=== PATIENT | male | born 1985 | race Caucasian/White ===

== ENCOUNTER 2017-06-21 02:55 | Inpatient (IN) | payer MEDICAID ==
[2017-06-21] VITALS (8 sets, daily range): BP systolic 103–124; BP diastolic 60–87; PULSE 58–78; RESP 14–19; TEMP 97.7–98.2; O2SAT 96–99
[~2017-06-21] VITALS: Ht 165.1 cm; Wt 80.0 kg
[~2017-06-21 02:55] MED LIST: ATEN25TA PO; FLUT1SPR5 EACH NARE; MODA100T9 PO; PAXI10TA8 PO
[2017-06-21] MEDS ORDERED: BISACODYL 10 MG SUPP RECTAL PRN (04:30)
[2017-06-21] MEDS ORDERED: SODIUM CHLORIDE 0.9% FLUSH 10 ML FLUSH IV FLUSH PRN (04:30)
[2017-06-21] MEDS ORDERED: MAGNESIUM HYDROXIDE SUSP 30 ML CUP PO PRN (04:30)
[2017-06-21] MEDS ORDERED: ONDANSETRON HCL 4 MG/2 ML VIAL IVP PRN (04:30)
[2017-06-21] MEDS ORDERED: SENNOSIDES 8.6 MG TAB PO PRN (04:30)
[2017-06-21] MEDS ORDERED: NALOXONE HCL 0.4 MG/ML AMP IV PUSH PRN (04:30)
[2017-06-21] MEDS ORDERED: ACETAMINOPHEN 325 MG TAB PO PRN (04:30)
[2017-06-21] MEDS ORDERED: LACTULOSE SYRUP 20 GM/30 ML CUP PO PRN (04:30)
--- NOTE | 2017-06-21 04:38 | HHI.HP ---
[facility] Primary Care Physician Unknown Admission Diagnosis Diagnoses: Travel History International Travel<30 Days: No Contact w/Intl Traveler <30 Da: No Traveled to Known Affected Are: No History of Present Illness 32-year-old male with a past medical history significant for tachycardia presents the emergency department for the evaluation of abdominal pain. The patient reports he has had epigastric pain that radiates to his right quadrant, medial chest and back for the past day. The pain is accompanied by severe nausea. He reports he has had this pain intermittently for the past 1-2 years and it is worse with eating fatty foods. He also reports accompanying diarrhea. He endorses subjective chills. Denies fever. No chest pain or shortness of breath. No emesis. No weakness or fatigue. No lateralizing signs /symptoms. Review of Systems Except as stated in HPI: all other systems reviewed are Neg Past Family Social History Past Medical History Tachycardia Anxiety Past Surgical History Appendectomy Reported Medications Reported Meds & Active Scripts Active Flonase Nasal [place] (Fluticasone Nasal [place]) 50 Mcg/Act [place] 100 Mcg EACH NARE BID Reported Modafinil 100 Mg Tab 100 Mg PO BID PRN Paxil (Paroxetine HCl) 10 Mg Tab 10 Mg PO DAILY Atenolol 25 Mg Tab 25 Mg PO DAILY Allergies: Coded Allergies: No Known Allergies (Verified Adverse Reaction, Unknown, 06/21/17) Family History Family history of coronary artery disease. Social History Negative for tobacco. Rare alcohol. Denies illicit drugs. Physical Exam Vital Signs Vital Signs Date Time Temp Pulse Resp B/P (MAP) Pulse Ox O2 Delivery O2 Flow Rate FiO2 06/21/17 03:09 98.2 65 16 124/87 (99) 98 Physical Exam GENERAL: male sitting up in bed SKIN: No rashes, ecchymoses or lesions. Cool and dry. HEAD: Atraumatic. Normocephalic. No temporal or scalp tenderness. EYES: Pupils equal round and reactive. Extraocular motions intact. No scleral icterus. No injection or drainage. ENT: Nose without bleeding, purulent drainage or septal hematoma. Throat without erythema, tonsillar hypertrophy or exudate. Uvula midline. Airway patent. NECK: Trachea midline. No JVD or lymphadenopathy. Supple, nontender, no meningeal signs. CARDIOVASCULAR: Regular rate and rhythm without murmurs, gallops, or rubs. RESPIRATORY: Clear to auscultation. Breath sounds equal bilaterally. No wheezes , rales, or rhonchi. GASTROINTESTINAL: Abdomen soft, tender to palpation in the upper quadrants, nondistended. No hepato-splenomegaly, or palpable masses. Positive Kaufman sign. MUSCULOSKELETAL: Extremities without clubbing, cyanosis, or edema. No joint tenderness, effusion, or edema noted. No calf tenderness. NEUROLOGICAL: Awake and alert. Cranial nerves II through XII intact. Motor and sensory grossly within normal limits. Normal speech. Caprini VTE Risk Assessment Caprini VTE Risk Assessment: No/Low Risk (score <= 1) Caprini Risk Assessment Model Point Value = 1 Point Value = 2 Point Value = 3 Point Value = 5 Age 41-60 Minor surgery BMI > 25 kg/m2 Swollen legs Varicose veins or History of unexplained or recurrent spontaneous Oral contraceptives or hormone replacement Sepsis (< 1 month) Serious lung disease, including pneumonia (< 1 month) Abnormal pulmonary function Acute myocardial infarction Congestive heart failure (< 1 month) History of inflammatory bowel disease Medical patient at bed rest Age 61-74 Arthroscopic surgery Major open surgery (> 45 min) Laparoscopic surgery (> 45 min) Malignancy Confined to bed (> 72 hours) Immobilizing plaster cast Central venous access Age >= 75 History of VTE Family history of VTE Factor V Leiden Prothrombin [id number] Lupus anticoagulant Anticardiolipin antibodies Elevated serum homocysteine Heparin-induced thrombocytopenia Other congenital or acquired thrombophilia Stroke (< 1 month) Elective arthroplasty Hip, pelvis, or leg fracture Acute spinal cord injury (< 1 month) Prophylaxis Regimen Total Risk Factor Score Risk Level Prophylaxis Regimen 0-1 Low Early ambulation 2 Moderate Order ONE of the following: *Sequential Compression Device (SCD) *Heparin 5000 units SQ BID 3-4 Higher Order ONE of the following medications: *Heparin 5000 units SQ TID *Enoxaparin/Lovenox 40 mg SQ daily (WT < 150 kg, CrCl > 30 mL/min) *Enoxaparin/Lovenox 30 mg SQ daily (WT < 150 kg, CrCl > 10-29 mL/min) *Enoxaparin/Lovenox 30 mg SQ BID (WT < 150 kg, CrCl > 30 mL/min) AND/OR *Sequential Compression Device (SCD) 5 or more Highest Order ONE of the following medications: *Heparin 5000 units SQ TID (Preferred with Epidurals) *Enoxaparin/Lovenox 40 mg SQ daily (WT < 150 kg, CrCl > 30 mL/min) *Enoxaparin/Lovenox 30 mg SQ daily (WT < 150 kg, CrCl > 10-29 mL/min) *Enoxaparin/Lovenox 30 mg SQ BID (WT < 150 kg, CrCl > 30 mL/min) AND *Sequential Compression Device (SCD) Assessment and Plan Assessment and Plan Assessment/plan: 1. Acute cholecystitis CT positive for mucosal enhancement and pericholecystic fluid of the gallbladder Gallbladder ultrasound pending General surgery consulted, appreciate assistance Morphine for pain Zosyn N.p.o. 2. Tachycardia Continue home atenolol 3. Anxiety Continue home Paxil FEN NPO Electrolytes: monitor and replete prn NS at 100 cc/hr Physician Certification 2 Midnight Certification Type: Admission for Inpatient Services Order for Inpatient Services The services are ordered in accordance with Medicare regulations or non- Medicare payer requirements, as applicable. In the case of services not specified as inpatient-only, they are appropriately provided as inpatient services in accordance with the 2-midnight benchmark. Estimated LOS (days): 2 2 days is the estimated time the patient will need to remain in the hospital, assuming treatment plan goals are met and no additional complications. Post-Hospital Plan: Not yet determined Nica Rodrigez MD Jun 21, 2017 04:38
[2017-06-21] MEDS: SODIUM CHLOR 0.9% 1000 ML INJ 1,000 ML IV SCH ×3 (05:02→23:32)
[2017-06-21] MEDS: PIPERACIL-TAZO 3.375 GM PREMIX 50 ML IV SCH ×4 (05:02→23:32)
[2017-06-21] MEDS: MORPHINE SULFATE 4 MG/ML INJ IV PUSH PRN ×4 (07:00→21:11)
--- NOTE | 2017-06-21 08:13 | RADRPT ---
EXAM DATE/TIME: 06/21/2017 07:13 [place] COMPARISON: No previous studies available for comparison. INDICATIONS : Right upper quadrant pain. MEDICAL HISTORY : Sinus tachycardia. HTN. Depression. Anxiety. SURGICAL HISTORY : Appendectomy. ENCOUNTER: Initial ACUITY: 1 day PAIN SCORE: 7/10 LOCATION: Right upper quadrant MEASUREMENTS: LIVER: 13.2 cm length COMMON DUCT: 3 mm RIGHT KIDNEY: 9.5 x 4.3 x 3.6 cm FINDINGS: LIVER: Normal echotexture without focal lesion or ductal dilatation. COMMON DUCT: No intraluminal mass or stone visualized. GALLBLADDER: Contains mobile echogenic foci without pericholecystic fluid. Gallbladder wall measures 4 mm. PANCREAS: Not visualized due to overlying bowel gas. RIGHT KIDNEY: No evidence of hydronephrosis, stone, or mass. CONCLUSION: 1. Cholelithiasis with gallbladder wall thickening. No pericholecystic fluid. 2. Nonvisualization of the pancreas. Errol Torrez MD on June 21, 2017 at 8:06 Board Certified Radiologist. This report was verified electronically.
[2017-06-21] MEDS: ATENOLOL 25 MG TAB PO SCH (09:04)
[2017-06-21] MEDS: DOCUSATE SODIUM 50 MG/SENNA 8.6 MG TAB PO SCH ×2 (09:04→21:04)
[2017-06-21] MEDS: PARoxetine HCL 20 MG TAB PO SCH (09:04)
[2017-06-21] MEDS: SODIUM CHLORIDE 0.9% FLUSH 10 ML FLUSH IV FLUSH SCH ×2 (09:04→21:00)
--- NOTE | 2017-06-21 10:59 | PD.CONS ---
cc: Tobias Khan MD HPI Service General Surgery Consult Requested By Dr. Rodrigez Reason for Consult Evaluate for acute cholecystitis Primary Care Physician Unknown History of Present Illness This is a 32 year old male with a past medical history of tachycardia and anxiety who presents to the ED for evaluation of RUQ pain with associated nausea. The patient reports he has had this pain off and on for about 18 months or so. He had a CTA to rule out pain of aortic origin and the scan showed acute cholecystis. The patient also had a gallbladder ultrasound which showed gallstones with gallbladder wall thickening. The patient's liver enzymes are normal. His lipase is normal. A General Surgery consultation has been requested. Review of Systems Constitutional: COMPLAINS OF: Chills, DENIES: Fatigue, Fever, Change in appetite Endocrine: DENIES: Polydipsia, Polyuria, Polyphagia Eyes: DENIES: Diplopia Ears, nose, mouth, throat: DENIES: Tinnitus Respiratory: DENIES: Apneas Cardiovascular: DENIES: Chest pain Gastrointestinal: COMPLAINS OF: Abdominal pain, Nausea, DENIES: Vomiting Genitourinary: DENIES: Urinary incontinence, Urgency Musculoskeletal: DENIES: Joint pain Integumentary: DENIES: Abnormal pigmentation Hematologic/lymphatic: DENIES: Bruising Immunologic/allergic: DENIES: Eczema Neurologic: DENIES: Headache, Localized weakness, Paresthesias Psychiatric: DENIES: Mood changes, Depression, Hallucinations Past Family Social History Past Medical History Tachycardia Anxiety Past Surgical History Laparoscopic appendectomy about [address] Junior Reported Medications Atenolol Paxil Allergies: Coded Allergies: No Known Allergies (Verified Adverse Reaction, Unknown, 06/21/17) Active Ordered Medications Current Medications Medications (Trade) Dose Ordered Sig/Dagmar Route Start Time Stop Time Status Last Admin Sodium Chloride 1,000 ml @ 100 mls/hr Q10H IV 06/21/17 04:22 06/21/17 05:02 (NS Flush) 2 ml UNSCH PRN IV FLUSH 06/21/17 04:30 (NS Flush) 2 ml BID IV FLUSH 06/21/17 09:00 06/21/17 09:04 (Tylenol) 650 mg Q4H PRN PO 06/21/17 04:30 (Zofran Inj) 4 mg Q6H PRN IVP 06/21/17 04:30 (Narcan Inj) 0.4 mg UNSCH PRN IV PUSH 06/21/17 04:30 (Rufina-Colace) 1 tab BID PO 06/21/17 09:00 06/21/17 09:04 (Milk Of Magnesia Liq) 30 ml Q12H PRN PO 06/21/17 04:30 (Senokot) 17.2 mg Q12H PRN PO 06/21/17 04:30 (Dulcolax Supp) 10 mg DAILY PRN RECTAL 06/21/17 04:30 (Lactulose Liq) 30 ml DAILY PRN PO 06/21/17 04:30 (Morphine Inj) 4 mg Q3H PRN IV PUSH 06/21/17 04:30 06/21/17 07:00 (Tenormin) 25 mg DAILY PO 06/21/17 09:00 06/21/17 09:04 (Paxil) 10 mg DAILY PO 06/21/17 09:00 06/21/17 09:04 Piperacillin Sod/ Tazobactam Sod 50 ml @ 100 mls/hr Q6H IV 06/21/17 05:00 06/21/17 05:02 Family History Grandmother had open cholecystectomy many years ago Social History Denies tobacco use Denies ETOH use Denies illicit drug use Works as a business services clerk. Lives in [place]. Physical Exam Vital Signs Vital Signs Date Time Temp Pulse Resp B/P (MAP) Pulse Ox O2 Delivery O2 Flow Rate FiO2 06/21/17 09:33 15 06/21/17 09:31 98.1 58 15 116/68 (84) 97 Room Air 06/21/17 07:05 17 06/21/17 05:00 59 14 103/60 (74) Room Air 98 06/21/17 03:09 98.2 65 16 124/87 (99) 98 Physical Exam GENERAL: 32 year old male resting in bed in no acute distress. SKIN: Warm and dry. Multiple tattoos. HEAD: Atraumatic. Normocephalic. EYES: Pupils equal and round. No scleral icterus. No injection or drainage. ENT: No nasal bleeding or discharge. Mucous membranes pink and moist. NECK: Trachea midline. CARDIOVASCULAR: Regular rate and rhythm. RESPIRATORY: No accessory muscle use. Clear to auscultation. Breath sounds equal bilaterally. GASTROINTESTINAL: Abdomen soft, mildly distended; epigastric and RUQ tenderness to palpation. Easily reducible umbilical hernia. Welled healed laparoscopic scars. MUSCULOSKELETAL: Extremities without clubbing, cyanosis, or edema. No obvious deformities. NEUROLOGICAL: Awake and alert. No obvious cranial nerve deficits. Motor grossly within normal limits. Five out of 5 muscle strength in the arms and legs. Normal speech. PSYCHIATRIC: Appropriate mood and affect; insight and judgment normal. Imaging Last 48 hours Impressions Gall Bladder Ultrasound 06/21/17 0000 Signed Impressions: Service Date/Time: Wednesday, June 21, 2017 07:13 - CONCLUSION: 1. Cholelithiasis with gallbladder wall thickening. No pericholecystic fluid. 2. Nonvisualization of the pancreas. Errol Torrez MD Assessment and Plan Assessment and Plan 32 year old male with RUQ pain; gallstones; acute cholecystitis -Plan for lap parker with umbilical hernia repair for tomorrow tomorrow afternoon with Dr. Khan -Clear liquids; NPO after MN -Consents on chart -IVF -Pain control -Zosyn -Thank you for this consult; We will continue to follow Attending Note - Dr. Khan Patient seen at bedside and examined; epigastric and RUQ tenderness See above Risks, benefits, alternatives and convalescence discussed with patient; he vocalizes understanding and agrees to proceed. The exam, history, and the medical decision-making described in the above note were completed with the assistance of the mid-level provider. I reviewed and agree with the findings presented. I attest that I had a [id number] encounter with the patient on the same day, and personally performed and documented my assessment and findings in the medical record. Discussed Condition With Dr. Khan Mr. Faulkner + Mother at bedside Barbara Staples/Therapeutic Program Worker CONSERVATION WORKER Jun 21, 2017 10:59 Tobias Khan MD Jun 22, 2017 15:55
--- NOTE | 2017-06-21 18:00 | HHI.PR ---
Addendum To [facility] Progress Not Reason for addendum: Additonal documentation (Hemodynamically stable tolerating liquid diet for surgery in am) Boaz Mejia MD Jun 21, 2017 18:00
[2017-06-22] VITALS: BP 109/56; PULSE 63; RESP 18; TEMP 97.4; O2SAT 96
[2017-06-22] MEDS ORDERED: SODIUM CHLORID 0.9% 500 ML IV PRN (00:30)
[2017-06-22] MEDS ORDERED: LACTATED RINGER'S 1000 ML IV PRN (00:30)
[2017-06-22] MEDS ORDERED: POVIDONE IODINE 5% (ANTISEPSIS KIT) 4 APPLICATIONS EACH NARE PRN (00:30)
[2017-06-22] MEDS ORDERED: CHLORHEXIDINE GLUCONATE 2 % 1 PACK (2 CLOTHS) TOPICAL PRN (00:30)
[2017-06-22] MEDS: PIPERACIL-TAZO 3.375 GM PREMIX 50 ML IV SCH ×3 (05:52→17:00)
[2017-06-22] MEDS: MORPHINE SULFATE 4 MG/ML INJ IV PUSH PRN ×3 (06:25→14:09)
[2017-06-22 07:13] LABS: AUTOMATED NEUTROPHIL # 3.2 TH/MM3 (1.8-7.7); BASOPHIL % 0.3 % (0.0-2.0); EOSINOPHIL # 0.1 TH/MM3 (0-0.4); EOSINOPHIL % 2.6 % (0.0-4.0); HEMATOCRIT 41.3 % (39.0-51.0); HEMOGLOBIN 14.3 GM/DL (13.0-17.0); LYMPHOCYTE # 1.9 TH/MM3 (1.0-4.8); MEAN CELL VOLUME 86.5 FL (80.0-100.0); MEAN CORPUSCULAR HEMOGLOBIN 29.9 PG (27.0-34.0); MEAN CORPUSCULAR HGB CONC 34.6 % (32.0-36.0); MEAN PLATELET VOLUME 8.7 FL (7.0-11.0); MONO % 7.7 % (0.0-8.0); MONOCYTE # 0.4 TH/MM3 (0-0.9); NEUT % 56.4 % (16.0-70.0); PLATELET COUNT 173 TH/MM3 (150-450); RED BLOOD COUNT 4.78 MIL/MM3 (4.50-5.90); RED CELL DISTRIBUTION WIDTH 12.7 % (11.6-17.2); WHITE BLOOD COUNT 5.7 TH/MM3 (4.0-11.0)
[2017-06-22] MEDS: SODIUM CHLORIDE 0.9% FLUSH 10 ML FLUSH IV FLUSH SCH (07:30)
[2017-06-22 07:50] LABS: ALBUMIN 3.5 GM/DL (3.4-5.0); AST (GOT) 27 U/L (15-37); BICARBONATE 28.8 MEQ/L (21.0-32.0); BLOOD UREA NITROGEN 5 MG/DL (7-18); CALCIUM 8.7 MG/DL (8.5-10.1); CHLORIDE 108 MEQ/L (98-107); CREATININE 1.23 MG/DL (0.60-1.30); GLOMERULAR FILTRATION RATE 67 ML/MIN (>89); GLUCOSE,RANDOM 83 MG/DL (74-106); SODIUM (NA) 143 MEQ/L (136-145)
[2017-06-22 07:51] LABS: ALT (GPT) 38 U/L (12-78)
[2017-06-22 07:53] LABS: ALKALINE PHOSPHATASE 74 U/L (45-117); TOTAL BILIRUBIN ADULT 0.8 MG/DL (0.2-1.0); TOTAL PROTEIN 6.4 GM/DL (6.4-8.2)
[2017-06-22 08:00] VITALS: BP 108/57; PULSE 59; RESP 16; TEMP 97.6; O2SAT 96
[2017-06-22] MEDS: PARoxetine HCL 20 MG TAB PO SCH (08:54)
[2017-06-22] MEDS: ATENOLOL 25 MG TAB PO SCH (08:55)
[2017-06-22] MEDS: DOCUSATE SODIUM 50 MG/SENNA 8.6 MG TAB PO SCH (08:55)
[2017-06-22 12:00] VITALS: BP 118/66; PULSE 61; RESP 18; TEMP 97.6; O2SAT 96
[2017-06-22] MEDS ORDERED: NEOSTIGMINE 5 MG/5 ML SYRINGE IV PUSH ONE (12:00)
[2017-06-22] MEDS ORDERED: DEXAMETHASONE SOD PHOS 4 MG/ML VIAL IV ONE (12:00)
[2017-06-22] MEDS ORDERED: ceFAZolin INJ 1,000 MG VIAL IV ONE (12:00)
[2017-06-22] MEDS ORDERED: PROPOFOL 200 MG/20 ML AMP IV ONE (12:00)
[2017-06-22] MEDS ORDERED: GLYCOPYRROLATE 1 MG/5 ML SYRINGE IV PUSH ONE (12:00)
[2017-06-22] MEDS ORDERED: ONDANSETRON HCL 4 MG/2 ML VIAL IV ONE (12:00)
[2017-06-22] MEDS ORDERED: KETOROLAC TROMETHAMINE 30 MG/ML (IVP) VIAL IV PUSH ONE (12:00)
[2017-06-22] MEDS ORDERED: ROCURONIUM INJ 50 MG/5 ML SYRINGE IV PUSH ONE (12:00)
[2017-06-22] MEDS ORDERED: LIDOCAINE HCL 1% PF 5 ML SYRINGE OTHER ONE (12:00)
[2017-06-22] MEDS: SODIUM CHLOR 0.9% 1000 ML INJ 1,000 ML IV SCH (12:19)
--- NOTE | 2017-06-22 15:18 | HHI.PR ---
Subjective Remarks Pain is under control. Plan for cholecystectomy today. No new complaints from the patient. Objective Vital Signs Date Time Temp Pulse Resp B/P (MAP) Pulse Ox O2 Delivery O2 Flow Rate FiO2 06/22/17 12:00 97.6 61 18 118/66 (83) 96 06/22/17 08:00 97.6 59 16 108/57 (74) 96 06/22/17 00:00 97.4 63 18 109/56 (73) 96 06/21/17 20:00 97.7 77 18 116/67 (83) 96 06/21/17 16:00 97.7 65 19 120/65 (83) 97 06/21/17 15:55 97.8 78 16 118/77 (91) 99 I/O 06/21/17 06/21/17 06/21/17 06/22/17 06/22/17 06/22/17 07:00 15:00 23:00 07:00 15:00 23:00 Intake Total 50 ml 550 ml 1600 ml 50 ml Balance 50 ml 550 ml 1600 ml 50 ml Intake Oral 500 ml IV Total 50 ml 50 ml 1600 ml 50 ml # Voids 1 1 # Bowel Movements 1 Result Diagram: 06/22/17 0606/22/17 0628 Objective Remarks GENERAL: NAD, A&Ox3 HEAD: Normocephalic. NECK: Supple, trachea midline. No lymphadenopathy. EYES: No scleral icterus. No injection or drainage. CARDIOVASCULAR: Regular rate and rhythm without murmurs, gallops, or rubs. RESPIRATORY: Breath sounds equal bilaterally. No accessory muscle use. GASTROINTESTINAL: Abdomen soft, non-tender, nondistended. Right upper quadrant tenderness. MUSCULOSKELETAL: No cyanosis, or edema. SKIN: Warm and dry. NEURO: No focal neurological deficitis. A/P Problem List: (1) Cholecystitis ICD Code: K81.9 - Cholecystitis, unspecified Assessment and Plan 32-year-old male admitted secondary to acute cholecystitis Acute cholecystitis Plan for cholecystectomy today General surgery following Continue morphine for pain Continue Zosyn N.p.o. Follow CBC Tachycardia Continue atenolol Anxiety Continue Paxil DVT prophylaxis Patient ambulatory Discharge planning Possible discharge tomorrow pending surgical clearance Dontrell Mena MD Jun 22, 2017 15:18
[2017-06-22] MEDS ORDERED: BUPIVACAINE/EPINEPHRINE 0.25% 50 ML VIAL ONE (16:05)
[2017-06-22] MEDS ORDERED: metroNIDAZOLE 500 MG INJ 100 ML IV ONE (16:39)
[2017-06-22] MEDS ORDERED: ACETAMINOPHEN 1000 MG/100 ML 100 ML IV ONE (16:42)
[2017-06-22] MEDS ORDERED: ceFAZolin INJ 1,000 MG VIAL ONE (17:11)
[2017-06-22] MEDS ORDERED: MIDAZOLAM HCL 2 MG/2 ML VIAL ONE (17:33)
[2017-06-22] MEDS ORDERED: *morphine SULFATE 4 MG/ML PERIprocedure ONLY ONE ×2 (17:35→17:49)
[2017-06-22] MEDS ORDERED: HYDR-3288 PO (17:43)
--- NOTE | 2017-06-22 17:47 | HHI.PR ---
cc: Tobias Khan MD Immediate Post Op Note Procedure Date: Jun 22, 2017 Pre Op Diagnosis: Acute cholecystitis Umbilical hernia, reducible Post Op Diagnosis: Same Surgeon: Tobias Khan Portfolio Mgr(s): Rach Macdonald CFA Procedure: Laparoscopic cholecystectomy Primary repair umbilical hernia Complications: None Specimen(s) removed: Gallbladder to pathology Estimated blood loss: 30 ml Anesthesia: General Drains: None IVF (1000 ml) Patient to: PACU Patient Condition: Good Date/Time of Procedure: SEE SURGICAL CARE RECORD Tobias Khan MD Jun 22, 2017 17:47
--- NOTE | 2017-06-22 18:24 | HHI.DS ---
Discharge Summary Admission Date Jun 21, 2017 at 04:27 Discharge Date: Jun 22, 2017 Admitting Diagnosis (1) Cholecystitis ICD Code: K81.9 - Cholecystitis, unspecified Diagnosis: Principal Procedures Cholecystectomy Brief History - From Admission 32-year-old male with a past medical history significant for tachycardia presents the emergency department for the evaluation of abdominal pain. The patient reports he has had epigastric pain that radiates to his right quadrant, medial chest and back for the past day. The pain is accompanied by severe nausea. He reports he has had this pain intermittently for the past 1-2 years and it is worse with eating fatty foods. He also reports accompanying diarrhea. He endorses subjective chills. Denies fever. No chest pain or shortness of breath. No emesis. No weakness or fatigue. No lateralizing signs /symptoms. CBC/BMP: 06/22/17 0628 06/22/17 0628 Significant Findings Laboratory Tests Test 06/22/17 06:28 Blood Urea Nitrogen 5 MG/DL (7-18) Chloride Level 108 MEQ/L (98-107) Estimat Glomerular Filtration Rate 67 ML/MIN (>89) Hospital Course Mr. Faulkner is a 32-year-old male. He was admitted secondary to acute cholecystitis. Today he had a cholecystectomy and he is doing well postop he has been cleared by surgery. Pain is controlled. Prescription medications for pain treatments at discharge are provided. No further need for antibiotics. Patient is medically stable and cleared for discharge home today. Pt Condition on Discharge: Stable Discharge Disposition: Discharge Home Discharge Time: <= 30 minutes Discharge Instructions DIET: Follow Instructions for: As Tolerated, No Restrictions Activities you can perform: Regular-No Restrictions Other Activity Instructions: Limit heavy lifting for weight and duration as specified by surgeon. Follow up Referrals: PCP Follow-up - 2 Weeks Surgical - 2 Weeks New Medications: Hydrocodone-Acetaminophen ([place]) 7.5-325 mg Tab 1-2 TAB PO Q4H PRN for PAIN, #30 TAB 0 Refills Continued Medications: Atenolol (Atenolol) 25 Mg Tab 25 MG PO DAILY for Blood Pressure Management, #30 TAB Fluticasone Nasal [place] (Flonase Nasal [place]) 50 Mcg/Act [place] 100 MCG EACH NARE BID for Allergies, #1 BOTTLE 0 Refills Modafinil (Modafinil) 100 Mg Tab 100 MG PO BID PRN for ANXIETY AND/OR INSOMNIA, TAB 0 Refills Paroxetine (Paxil) 10 Mg Tab 10 MG PO DAILY, #30 TAB 0 Refills Dontrell Mena MD Jun 22, 2017 18:23
[2017-06-22 18:28] VITALS: BP 116/72; PULSE 94; RESP 17; TEMP 98.5; O2SAT 98
--- NOTE | 2017-06-23 11:59 | MP ---
cc: Tobias Khan MD DATE OF OPERATION: 06/22/2017 PROCEDURES PERFORMED: 1. Laparoscopic cholecystectomy. 2. Primary repair of umbilical hernia. PREOPERATIVE DIAGNOSIS: Acute cholecystitis. POSTOPERATIVE DIAGNOSIS: Acute cholecystitis. ANESTHESIA: General endotracheal. SURGEON: Tobias Khan MD ESTIMATED BLOOD LOSS: 30 mL. FLUIDS: 1000 mL crystalloid. COMPLICATIONS: None. DRAINS: None. SPECIMENS: Gallbladder and contents to pathology. PROCEDURE IN DETAIL: The patient was taken to the operating room, where he was placed on the operating table in the supine position. After an adequate level of general endotracheal anesthesia was achieved, the abdomen was prepped and draped in the usual fashion. Timeout was taken confirming the correct patient, site and procedure to be performed. Skin and subcutaneous tissue was infiltrated with local anesthetic and an incision made in the umbilicus and carried through the fascia sharply. Preperitoneal fat was reduced into the abdominal cavity. A 12 mm balloon trocar was inserted and the balloon inflated. The abdomen was insufflated. The patient was placed in reverse Trendelenburg position. Three 5 mm trocars were placed with the first of the falciform and second and third in the subcostal region. All entered the abdominal cavity under direct vision uneventfully. The gallbladder was somewhat distended and this was then punctured and aspirated. This allowed for the gallbladder to be more easily grasped after removing dark green bile. Approximately 80 mL was removed. The gallbladder was then retracted up and over the dome of the liver. The cystic duct infundibular junction and cystic artery were both circumferentially dissected. The cystic artery was doubly clipped proximally, singly clipped on the gallbladder side and divided. The cystic duct was singly clipped on the gallbladder side, doubly clipped distally and divided as well. The gallbladder was then dissected off of the liver bed with electric dissection. A cholangiogram was not obtained as the patient had normal liver function tests, normal caliber common bile duct and normal anatomy. The gallbladder was completely dissected off of the liver bed with electric dissection. Small bleeding points on the liver bed were controlled with electrocautery. The gallbladder was placed into an EndoCatch device and removed via the umbilical port while observing via the upper 5 mm trocar site. The specimen was passed off the table. The upper abdomen was revisualized via the umbilical port. The cystic artery stump, cystic duct stump and liver bed were all seen to be clean and dry. Insufflation was discontinued. No bleeding was noted from the trocar sites during desufflation. The laparoscope and umbilical port were then removed. The fascia was closed in the umbilicus with 0 Vicryl suture in a simple interrupted fashion. Multiple sutures were placed to obtain good closure of this umbilical defect. The remaining local anesthetic was injected into each of the trocar sites. Each of the trocar sites was then closed at the skin with 4-0 Vicryl in an interrupted buried fashion. All trocar sites were dressed with Steri-Strips. The patient was extubated and taken back to the recovery room in stable condition. He tolerated the procedure well. MD JULIO C Blue/MAYA , 11:08 PM , 11:22 PM
== END 2017-06-22 19:01 | disposition home or self-care (01) | DRG 419 ==
LOC: NEDDLT 02:55 → NEDA 03:05 → OBSVTOIN 04:27 → NEDH 09:58 → N07B 16:06
PROVIDERS: ADMIT Hospitalist; ATTEND Hospitalist
PROC: 0WQF4ZZ Repair Abdominal Wall, Percutaneous Endoscopic Approach (ICD-10-PCS; 2017-06-22)
PROC: 0FT44ZZ Resection of Gallbladder, Percutaneous Endoscopic Approach (ICD-10-PCS; principal; 2017-06-22 16:17)
DX: K80.00 Calculus of gallbladder with acute cholecystitis without obstruction (principal); F41.9 Anxiety disorder, unspecified; R00.0 Tachycardia, unspecified; K42.9 Umbilical hernia without obstruction or gangrene; Z79.899 Other long term (current) drug therapy
CPT/HCPCS: 71046; 71275; 74174; 76705; 80053; 81001; 82550; 83690; 83735; 84484; 85025; 85379; 85610; 85730; 88304; 93005; 96365; 96375; 99285; J0131; J0690; J1100; J1170; J1885; J2250; J2270; J2405; J2543; J2710; J3010; J7030; Q9967